=== PATIENT | female | born 1955 | race Caucasian/White ===

== ENCOUNTER → 2017-04-10 | Outpatient (CLI) | payer MEDICAID ==
[~2017-04-10] MED LIST: ACCUPRIL10 M1 PO; ACCUPRIL10 MG PO; ACCUPRIL20TAB PO; COZAAR 50MG50 MG/TAB PO; HCTZ 25MG TAB25 MG PO; HYZAAR 25 MG-101 TAB PO; LEVOXYL0.15 MG PO; MOTRIN 200200 MG/TAB PO; NORCO 325 MG-51 TAB PO; SYNTHROID0.05 MG PO; SYNTHROID0.112 MG PO; SYNTHROID0.125 MG/T PO; SYNTHROID0.137 MG PO; VITAMIN D1000 IU PO; VITAMIN D5000 IU PO; ZOCOR 20MG20 MG PO
== END ==
LOC: MC.RAD 14:42
DX: Z12.31 Encounter for screening mammogram for malignant neoplasm of breast (principal); D24.2 Benign neoplasm of left breast

== ENCOUNTER → 2017-10-08 | Outpatient (CLI) | payer MEDICAID | LOC: SUN.DIA 16:28 | DX: E11.9 Type 2 diabetes mellitus without complications (principal); Z71.3 Dietary counseling and surveillance | CPT/HCPCS: G0109 ==

== ENCOUNTER → 2017-10-22 | Outpatient (CLI) | payer MEDICAID | LOC: SUN.DIA 10-15 10:16 | DX: E11.9 Type 2 diabetes mellitus without complications (principal); Z71.3 Dietary counseling and surveillance | CPT/HCPCS: G0109 ==

== ENCOUNTER → 2017-11-10 | Outpatient (CLI) | payer MEDICAID | LOC: SUN.DIA 09:45 | DX: E11.9 Type 2 diabetes mellitus without complications (principal); E66.9 Obesity, unspecified; Z68.32 Body mass index [BMI] 32.0-32.9, adult; Z71.3 Dietary counseling and surveillance | CPT/HCPCS: G0108 ==

== ENCOUNTER → 2017-11-12 | Outpatient (CLI) | payer MEDICAID | LOC: SUN.DIA 09:51 | DX: E11.9 Type 2 diabetes mellitus without complications (principal); E66.9 Obesity, unspecified; Z71.3 Dietary counseling and surveillance | CPT/HCPCS: G0109 ==

== ENCOUNTER → 2017-11-26 | Outpatient (CLI) | payer MEDICAID | LOC: SUN.DIA 16:03 | DX: E11.9 Type 2 diabetes mellitus without complications (principal); E66.9 Obesity, unspecified; Z71.3 Dietary counseling and surveillance | CPT/HCPCS: G0109 ==

== ENCOUNTER → 2018-05-15 | Outpatient (CLI) | payer MEDICAID | LOC: COL.RAD 12:23 | DX: C50.411 Malignant neoplasm of upper-outer quadrant of right female breast (principal); R93.8 Abnormal findings on diagnostic imaging of other specified body structures; N88.8 Other specified noninflammatory disorders of cervix uteri ==

== ENCOUNTER → 2018-05-19 | Outpatient (CLI) | payer MEDICAID | LOC: MC.RAD 04-13 10:00 | DX: Z12.31 Encounter for screening mammogram for malignant neoplasm of breast (principal); C50.411 Malignant neoplasm of upper-outer quadrant of right female breast; Z90.11 Acquired absence of right breast and nipple ==

== ENCOUNTER → 2019-05-21 | Outpatient (CLI) | payer MEDICARE, MEDICAID | LOC: MC.RAD 02-23 11:45 | DX: Z12.31 Encounter for screening mammogram for malignant neoplasm of breast (principal); C50.411 Malignant neoplasm of upper-outer quadrant of right female breast; N64.89 Other specified disorders of breast; Z90.12 Acquired absence of left breast and nipple ==

== ENCOUNTER → 2019-05-28 | Outpatient (CLI) | payer MEDICARE, MEDICAID | LOC: MC.RAD 10:26 | DX: C50.411 Malignant neoplasm of upper-outer quadrant of right female breast (principal) ==

== ENCOUNTER 2019-07-07 07:04 | Day surgery (SDC) | payer MEDICARE, MEDICAID ==
[~2019-07-07] VITALS: Ht 160 cm; Wt 79.9 kg
--- NOTE | 2019-07-07 07:40 | NUR ---
Pt arrived to [facility] ambulating easily from radiology to chair. Pt alert and oriented and correctly identified reason for today's surgery. She reviewed consent and signed. Pt states that she has some mild pain 2/10 in her back, and she also states that she is VERY nervous about IV start, because she has had difficult IV starts in the past. Upon arrival, pt's blood pressure low 200's over low 100's. Pt states that she takes losartan for her blood pressure, and she did take today's dose. Repeated BP manually and resulted 204/100. Pt states that she thinks BP is high due to anxiety. This RN will plan to recheck BP after IV start. Pt agrees with plan and thinks she will be less anxious at that time.
[2019-07-07 07:55] VITALS: BP 189/68; PULSE 54; TEMP 97.6
--- NOTE | 2019-07-07 08:29 | NUR ---
Recheck blood pressure 194/76 @ 0829 after IV start. BP trending down and will plan on rechecking at 0900.
--- NOTE | 2019-07-07 09:00 | NUR ---
Rechecked pt's BP and results 189/68. Notified anesthesiologist regarding pt's elevated BP all morning and received order for 5 mg po Valium now. Order read back and confirmed via phone. No other orders received.
[2019-07-07] MEDS ORDERED: HUMALOG 75/2100 U/ML SQ (09:38)
[2019-07-07 14:17] VITALS: BP 153/73; PULSE 73; TEMP 97.2
--- NOTE | 2019-07-07 14:17 | NUR ---
Pt arrived back to [facility] room post surgery via cart with AIRPLANE DESIGNER, and she is awake and oriented. Received report from AIRPLANE DESIGNER, Clare, and reviewed with patient and daughter the goals before discharge. They both agree with plan and express understanding of the plan. Pt's VSS and WNL and incision is clean, dry, intact without redness or exudate. Call light within reach and Rula (daughter) at bedside.
[2019-07-07 14:30] VITALS: BP 158/67; PULSE 65
--- NOTE | 2019-07-07 14:30 | NUR ---
Pt resting comfortably with HOB up. Pt successfully drinking water without C/O nausea. Pt states her pain is controlled at 2/10 near incision site. VSS
[2019-07-07 14:45] VITALS: BP 152/73; PULSE 61
--- NOTE | 2019-07-07 14:45 | NUR ---
Pt still comfortable in bed and VSS. Pt denies change in pain or nausea.
[2019-07-07 15:00] VITALS: BP 162/73; PULSE 57
--- NOTE | 2019-07-07 15:00 | NUR ---
Pt dangling at side of bed without dizziness and eating pudding. Daughter at bedside. Call light within reach. Pt denies nausea/pain at this time
[2019-07-07 15:15] VITALS: BP 134/66; PULSE 60
--- NOTE | 2019-07-07 15:15 | NUR ---
Pt up to bathroom and successfully finished pudding and water with no c/o n/v. Pt states she is ready to go home, and she meets criteria for discharge.
--- NOTE | 2019-07-07 15:35 | NUR ---
Discharge information reviewed with patient and daughter at bedside by JAVON Whitney. Pt had no further questions or concerns and was discharge via wheelchair to private car.
== END 2019-07-07 15:38 | disposition home or self-care (01) ==
LOC: SDCO 07:04
DX: C50.412 Malignant neoplasm of upper-outer quadrant of left female breast (principal); Z17.0 Estrogen receptor positive status [ER+]; Z80.3 Family history of malignant neoplasm of breast; I10 Essential (primary) hypertension; E11.9 Type 2 diabetes mellitus without complications; Z79.4 Long term (current) use of insulin; E78.5 Hyperlipidemia, unspecified; G47.30 Sleep apnea, unspecified; E89.0 Postprocedural hypothyroidism; Z88.0 Allergy status to penicillin; Z92.21 Personal history of antineoplastic chemotherapy; Z92.3 Personal history of irradiation; Z79.899 Other long term (current) drug therapy; G47.33 Obstructive sleep apnea (adult) (pediatric)
CPT/HCPCS: A9541; J2250; J2405; J2704; J2795; J3010; J7030

== ENCOUNTER → 2019-09-13 | Outpatient (CLI) | payer MEDICARE, MEDICAID ==
[2019-09-13] VITALS (11 sets, daily range): BP systolic 119–214; BP diastolic 65–110; PULSE 64–87
[~2019-09-13] VITALS: Ht 160 cm; Wt 76.6 kg
[~2019-09-13] MED LIST changes: +HUMALOG 75/2100 U/ML SQ
--- NOTE | 2019-09-13 11:15 | NUR ---
PT WAS TAKEN TO CT AND POSITIONED ON THE TABLE. MONITORING EQUIPMENT PLACED AND IMAGES TAKEN.
--- NOTE | 2019-09-13 11:35 | NUR ---
PROCEDURE IS COMPLETED.
--- NOTE | 2019-09-13 12:49 | NUR ---
1 MG VERSED AND 50 MCG FENTANYL GIVEN
== END ==
LOC: COL.RAD 09:23
DX: C50.412 Malignant neoplasm of upper-outer quadrant of left female breast (principal); I10 Essential (primary) hypertension; M89.9 Disorder of bone, unspecified
CPT/HCPCS: J2250; J3010

== ENCOUNTER 2020-04-21 11:24 | Outpatient (CLI) | payer MEDICARE, MEDICAID | END 2020-04-24 | LOC: COL.RAD | DX: C50.812 Malignant neoplasm of overlapping sites of left female breast (principal); M16.0 Bilateral primary osteoarthritis of hip; Z17.0 Estrogen receptor positive status [ER+] | CPT/HCPCS: A9503 ==

== ENCOUNTER → 2020-04-21 | Outpatient (CLI) | payer MEDICARE | LOC: COL.RAD 09:57 | DX: C50.812 Malignant neoplasm of overlapping sites of left female breast (principal); C79.51 Secondary malignant neoplasm of bone; Z17.0 Estrogen receptor positive status [ER+]; Z98.890 Other specified postprocedural states; Z90.11 Acquired absence of right breast and nipple; Z90.89 Acquired absence of other organs | CPT/HCPCS: Q9967 ==

== ENCOUNTER → 2020-05-22 | Outpatient (CLI) | payer MEDICARE | LOC: MC.RAD 11:37 | DX: Z12.31 Encounter for screening mammogram for malignant neoplasm of breast (principal); N64.89 Other specified disorders of breast; Z98.890 Other specified postprocedural states ==

== ENCOUNTER → 2020-08-02 | Outpatient (CLI) | payer MEDICARE ==
[2020-08-02 12:05] LABS: BASO % 0.5 % (0.0-2.0); EOS # 0.2 (0.0-0.7); EOS % 2.3 % (0-4.0); GRAN # 4.9 (1.4-6.5); GRAN % 75.4 % (42.2-75.2); HEMATOCRIT 39.8 % (37.0-47.0); HEMOGLOBIN 13.4 g/dl (12.5-16.0); LYMPH # 1.1 (1.2-3.4); MEAN CELL VOLUME 91 fl (80.0-100.0); MEAN CORPUSCULAR HEMOGLOBIN 31 pg (27.0-31.0); MEAN CORPUSCULAR HGB CONC 34 g/dl (33.0-37.0); MEAN PLATELET VOLUME 9.8 fl (7.4-10.4); MONO # 0.3 (0.1-0.6); MONO % 4.5 % (1.7-9.3); PLATELET COUNT 225 K/mm3 (130-400); RED BLOOD COUNT 4.39 M/mm3 (4.10-5.30); REDCELL DISTRIBUTION WIDTH-CV 12.1 % (11.5-14.5)
[2020-08-02 12:18] LABS: ALBUMIN 4.4 gm/dL (3.5-5.0); BILIRUBIN,TOTAL 0.7 mg/dL (0.0-1.0); CREATININE, serum 0.66 (0.52-1.25); POTASSIUM 4.6 mmol/L (3.4-5.0)
== END ==
LOC: COL.RAD 08:30 → COL.LAB 11:23 → COL.RAD 11:30
PROVIDERS: Internal Medicine Hematology & Oncology
DX: C50.812 Malignant neoplasm of overlapping sites of left female breast (principal); C79.51 Secondary malignant neoplasm of bone; Z17.0 Estrogen receptor positive status [ER+]
CPT/HCPCS: Q9967

== ENCOUNTER → 2020-10-30 | Outpatient (CLI) | payer MEDICARE | LOC: COL.LAB | DX: E03.9 Hypothyroidism, unspecified (principal) ==

== ENCOUNTER → 2020-10-30 | Outpatient (CLI) | payer MEDICARE ==
[2020-10-30 16:22] LABS: BASO % 0.3 % (0.0-2.0); EOS # 0.1 (0.0-0.7); EOS % 1.3 % (0-4.0); GRAN # 5.2 (1.4-6.5); GRAN % 74.6 % (42.2-75.2); HEMOGLOBIN 13.4 g/dl (12.5-16.0); LYMPH # 1.3 (1.2-3.4); LYMPH % 17.8 % (20.0-51.0); MEAN CELL VOLUME 92 fl (80.0-100.0); MEAN CORPUSCULAR HEMOGLOBIN 31 pg (27.0-31.0); MEAN CORPUSCULAR HGB CONC 34 g/dl (33.0-37.0); MEAN PLATELET VOLUME 10.6 fl (7.4-10.4); MONO # 0.4 (0.1-0.6); MONO % 5.6 % (1.7-9.3); PLATELET COUNT 212 K/mm3 (130-400); RED BLOOD COUNT 4.37 M/mm3 (4.10-5.30); REDCELL DISTRIBUTION WIDTH-CV 12.2 % (11.5-14.5)
[2020-10-30 16:31] LABS: ALBUMIN 4.2 gm/dL (3.5-5.0); BILIRUBIN,TOTAL 0.6 mg/dL (0.0-1.0); CALCIUM 9.6 mg/dL (8.4-10.2); CREATININE, serum 0.74 (0.52-1.25); POTASSIUM 3.7 mmol/L (3.4-5.0); TOTAL PROTEIN 7.8 gm/dL (6.4-8.2)
[2020-10-30 17:01] LABS: THYROID STIMULATING HORMONE 1.68 uIU/mL (0.465-4.680)
== END ==
LOC: COL.LAB 15:56
PROVIDERS: Internal Medicine Hematology & Oncology
DX: C50.812 Malignant neoplasm of overlapping sites of left female breast (principal); C79.51 Secondary malignant neoplasm of bone; Z17.0 Estrogen receptor positive status [ER+]

== ENCOUNTER → 2020-10-31 | Outpatient (CLI) | payer MEDICARE | LOC: COL.RAD | DX: C50.812 Malignant neoplasm of overlapping sites of left female breast (principal); Z17.0 Estrogen receptor positive status [ER+]; Z90.11 Acquired absence of right breast and nipple; Z90.89 Acquired absence of other organs | CPT/HCPCS: Q9967 ==

== ENCOUNTER → 2021-02-20 | Outpatient (CLI) | payer MEDICARE | LOC: COL.RAD 02-09 11:30 | DX: Z13.89 Encounter for screening for other disorder (principal); C41.2 Malignant neoplasm of vertebral column; C79.51 Secondary malignant neoplasm of bone; C50.812 Malignant neoplasm of overlapping sites of left female breast; Z17.0 Estrogen receptor positive status [ER+]; Z90.11 Acquired absence of right breast and nipple; Z98.890 Other specified postprocedural states | CPT/HCPCS: Q9967 ==

== ENCOUNTER → 2021-07-02 | Outpatient (CLI) | payer MEDICARE | LOC: COL.RAD 11:14 | DX: Z01.812 Encounter for preprocedural laboratory examination (principal); M89.9 Disorder of bone, unspecified; Z90.11 Acquired absence of right breast and nipple | CPT/HCPCS: Q9967 ==

== ENCOUNTER → 2021-10-01 | Outpatient (CLI) | payer MEDICARE | LOC: MC.RAD 14:28 | DX: Z12.31 Encounter for screening mammogram for malignant neoplasm of breast (principal) ==

== ENCOUNTER 2021-10-30 08:47 | Day surgery (SDC) | payer MEDICARE ==
[~2021-10-30] VITALS: Ht 160 cm; Wt 78.3 kg
[2021-10-30] MEDS ORDERED: LANTUS100 U/ML SQ (09:39)
[2021-10-30] MEDS ORDERED: HCTZ 25MG TAB25 MG PO (09:40)
[2021-10-30] MEDS ORDERED: SYNTHROID0.125 MG/T PO (09:40)
[2021-10-30] MEDS ORDERED: ARIMIDEX1 MG PO (09:42)
[2021-10-30] MEDS ORDERED: MICRONASE2.5 MG PO (09:43)
[2021-10-30 10:05] VITALS: BP 185/98; PULSE 74; TEMP 97.7
[2021-10-30 10:50] VITALS: BP 113/58; PULSE 66; TEMP 97.3
--- NOTE | 2021-10-30 10:50 | NUR ---
The patient arrived from the endo suite after moderate sedation, drowsy but oriented. The patient was able to ambulate from the cart to the chair without difficulty. Vitals obtained. Report obtained. The patient requested ice water, however said she is "doesn't want to eat". Call ceballos is within reach.
--- NOTE | 2021-10-30 10:56 | NUR ---
told the RN that the patient said she "didn't feel like eating anything" and DR said "that's fine as long as she is holding down fluids". The RN verbalized understanding.
[2021-10-30 11:05] VITALS: BP 118/62; PULSE 58
--- NOTE | 2021-10-30 11:05 | NUR ---
Vitals obtained. The patient denies nausea. No vomiting. Call ceballos remains within reach.
[2021-10-30 11:20] VITALS: BP 113/58; PULSE 67
--- NOTE | 2021-10-30 11:20 | NUR ---
Vitals obtained. The patient continues to deny nausea. Her daughter was brought into the room from the waiting area.
[2021-10-30 11:35] VITALS: BP 113/65; PULSE 58
--- NOTE | 2021-10-30 11:35 | NUR ---
Vitals obtained. IV discontinued. Catheter tip intact. Pressure bandage appp
--- NOTE | 2021-10-30 11:45 | NUR ---
IV discontinued. Catheter tip intact. Pressure dressing applied. NO redness or swelling noted. The patients daughter was brought into her room. The patient denied needing assistance changing into her personal clothes. Call ceballos remains within reach.
--- NOTE | 2021-10-30 12:15 | NUR ---
DC instructions and educational material was reviewed with the patient, who verbalized understanding and signed the realted paperwork. The patient denied having any questions or concerns. The patient was then escorted out via wheelchair by JAVON Lew to the the medical center, where she was transferred into the care of her daughter who is present to drive. The patient has her DC packet in hand.
== END 2021-10-30 12:15 | disposition home or self-care (01) ==
LOC: SDCO 08:47
DX: Z12.11 Encounter for screening for malignant neoplasm of colon (principal); K64.0 First degree hemorrhoids; K57.30 Diverticulosis of large intestine without perforation or abscess without bleeding; Z86.010 Personal history of colon polyps
CPT/HCPCS: J0360; J2704; J7030

== ENCOUNTER → 2021-11-28 | Outpatient (CLI) | payer MEDICARE ==
[~2021-11-28] MED LIST changes: +ARIMIDEX1 MG PO; +LANTUS100 U/ML SQ; +MICRONASE2.5 MG PO
[2021-11-28 11:13] LABS: BASO % 0.3 % (0.0-2.0); EOS # 0.1 K/mm3 (0.0-0.7); EOS % 1.3 % (0.0-4.0); GRAN % 76.8 % (42.2-75.2); HEMATOCRIT 39.2 % (37.0-47.0); HEMOGLOBIN 13.3 g/dl (12.5-16.0); LYMPH # 1.3 K/mm3 (1.2-3.4); LYMPH % 16.5 % (20.0-51.0); MEAN CELL VOLUME 88 fl (80.0-100.0); MEAN CORPUSCULAR HEMOGLOBIN 30 pg (27-31); MEAN CORPUSCULAR HGB CONC 34 g/dl (33.0-37.0); MEAN PLATELET VOLUME 9.6 fl (7.4-10.4); MONO # 0.4 K/mm3 (0.1-0.6); MONO % 4.7 % (1.7-9.3); PLATELET COUNT 250 K/mm3 (130-400); RED BLOOD COUNT 4.47 M/mm3 (4.10-5.30); REDCELL DISTRIBUTION WIDTH-CV 12.2 % (11.5-14.5)
[2021-11-28 11:38] LABS: ALBUMIN 3.6 gm/dL (3.4-4.8); BILIRUBIN,TOTAL 0.6 mg/dL (0.2-1.2); CALCIUM 9.4 mg/dL (8.4-10.2); CREATININE, serum 0.81 mg/dL (0.57-1.11); TOTAL PROTEIN 8.1 gm/dL (6.2-8.1)
== END ==
LOC: COL.RAD 11-02 11:00 → COL.LAB 10:28 → COL.RAD 10:28
PROVIDERS: Internal Medicine Hematology & Oncology
DX: C50.812 Malignant neoplasm of overlapping sites of left female breast (principal); Z17.0 Estrogen receptor positive status [ER+]
CPT/HCPCS: Q9967

== ENCOUNTER → 2022-05-23 | Outpatient (CLI) | payer MEDICARE ==
[2022-05-23 12:06] LABS: ALBUMIN 3.7 gm/dL (3.4-4.8); BILIRUBIN,TOTAL 0.7 mg/dL (0.2-1.2); CALCIUM 9.8 mg/dL (8.4-10.2); CREATININE, serum 0.84 mg/dL (0.57-1.11); POTASSIUM 3.9 mmol/L (3.5-4.5); TOTAL PROTEIN 8.1 gm/dL (6.2-8.1)
== END ==
LOC: COL.RAD 10:14
PROVIDERS: Internal Medicine Hematology & Oncology
DX: C50.812 Malignant neoplasm of overlapping sites of left female breast (principal); C79.51 Secondary malignant neoplasm of bone; Z17.0 Estrogen receptor positive status [ER+]
CPT/HCPCS: Q9967

== ENCOUNTER → 2022-12-19 | Outpatient (CLI) | payer MEDICARE | LOC: MC.RAD 13:12 | DX: Z12.31 Encounter for screening mammogram for malignant neoplasm of breast (principal) ==

== ENCOUNTER → 2023-12-04 | Outpatient (CLI) | payer MEDICARE | LOC: MC.RAD 11:01 | DX: Z12.31 Encounter for screening mammogram for malignant neoplasm of breast (principal) ==

== ENCOUNTER → 2024-04-12 | Outpatient (CLI) | payer MEDICARE ==
[~2024-04-12] MED LIST changes: +Barium Sulfate 2% Oral Susp 450 ML X 2 BOTTLES PO SCH; +Iohexol 300 - 100 ML VIAL IV ONE; +NS 100 ML IV SCH
== END ==
LOC: COL.RAD 08:56
DX: C50.812 Malignant neoplasm of overlapping sites of left female breast (principal); C79.51 Secondary malignant neoplasm of bone; R91.1 Solitary pulmonary nodule; Z17.0 Estrogen receptor positive status [ER+]; Z90.11 Acquired absence of right breast and nipple
CPT/HCPCS: Q9967